=== PATIENT | female | born 1995 | race Caucasian/White ===

== ENCOUNTER 2019-11-17 17:24 | Outpatient (REF) | payer OTHER, SELFPAY | END 2019-11-17 17:25 | disposition home or self-care (01) | LOC: HO.LAB 17:24 | PROVIDERS: Visit Provider Internal Medicine | DX: Z20.828 Contact with and (suspected) exposure to other viral communicable diseases (principal) | CPT/HCPCS: 87635 ==

== ENCOUNTER 2020-01-05 16:59 | Outpatient (REF) | payer OTHER, SELFPAY | END 2020-01-05 17:00 | disposition home or self-care (01) | LOC: HO.LAB 16:59 | PROVIDERS: Visit Provider Internal Medicine | DX: Z20.828 Contact with and (suspected) exposure to other viral communicable diseases (principal) | CPT/HCPCS: C9803; U0003 ==

== ENCOUNTER 2020-05-22 12:34 | Emergency (ER) | payer OTHER, SELFPAY ==
--- NOTE | ~2020-05-22 | XR_ITS ---
EXAMINATION: RIGHT HAND and wrist CLINICAL INFORMATION: Glass injury. Rule out foreign body COMPARISON: None TECHNIQUE: 4 view right hand and wrist FINDINGS: There is no evidence of acute fracture or dislocation of the right hand or wrist. Bandage overlying the volar lateral aspect of the right wrist is present and may obscure faint radiopaque foreign bodies however no definite radiopaque foreign body is identified. XR/XR hand wrist RT IMPRESSION: No definite radiopaque foreign body identified with limitations of dressing in place about the wrist.
[2020-05-22 13:02] VITALS: BP 134/83; PULSE 88; RESP 18; TEMP 37.1; O2SAT 99; BMI 21.2
[2020-05-22] MEDS: Lidocaine HCl 1 % MPF 5 ML VIAL SUBCUT ×2 (13:14)
[2020-05-22] MEDS: LORazepam 1 MG TABLET PO (14:28)
--- NOTE | 2020-05-22 15:38 | ED.WOUNDLAC ---
HPI - Wound/Laceration General Chief Complaint: Wound/Laceration Stated Complaint: R HAND LACERATION Time Seen by Provider: 05/22/20 12:59 History of Present Illness HPI narrative: Patient complains of a laceration to her right hand after she got upset and put her hand through a mirror, denies any numbness weakness or tingling does not have any foreign body sensation Related Data Allergies Allergy/AdvReac Type Severity Reaction Status Date / Time No Known Allergies Allergy Verified 05/22/20 13:04 [No Known Allergies*] Review of Systems Review of Systems: Positive for right hand laceration Negatives are no fever no chills no dizziness no weakness no headache no numbness weakness or tingling PMFSH Past Medical History Source: nursing notes reviewed Medical History (Updated 05/23/20 @ 00:00 by Background Daemon) No known health problems Social History Social History Advance Directives: No Advance Directives Information Provided: No Physical Exam Vital Signs: Vital Signs: Last Vital Signs Temp 98.7 F 05/22/20 13:02 Pulse 88 05/22/20 13:02 Resp 18 05/22/20 13:02 BP 134/83 05/22/20 13:02 Pulse Ox 99 05/22/20 13:02 Body Mass Index 21.2 General appearance is no acute distress, com and cooperative The head is normocephalic atraumatic Neck is supple Respiratory no distress Extremities the right hand has 2 lacerations on the palm 1 is a 1 cm straight laceration, the 2nd 1 is a 3.5 cm gaping laceration on the palm, all tendon function is normal on flexion and extension and neurovascular intact distal Other extremities normal Neuro no focal deficit Course Course Course Narrative: Two lacerations on right hand the 1st 1 is 1.5 cm straight laceration and the 2nd 1 is a gaping curved 3.5 cm palm laceration The lacerations are copiously irrigated with no evidence of foreign body Anesthesia is 6 cc of 1% lidocaine in the larger laceration and 3 cc of 1% lidocaine and the smaller laceration The large laceration was closed with a mix of 4-0 and 5 0 nylon sutures with some Steri-Strips placed for thin skin flap The 1.5 cm palm laceration was cleansed and irrigated with normal saline anesthesia was 3 cc of 1% lidocaine and 350 nylon sutures were used to close All bleeding was controlled and dressing was applied X-rays were negative for any foreign body or bony injury Discharge Plan Discharge Clinical Impression: Laceration Patient Disposition: Home, Self-Care Additional Instructions: Stitches need to come out in 1 week, they can remove the tape at the same time and if the tape falls off there is no need to replace it Remove the bandage to wash the hand at least twice a day gently with soap and water You can replace Band-Aids or bandages when skin is dry and any wet Band-Aid or bandage should removed immediately and changed Return any time for redness, swelling, increasing pain, red stripe up arm, discharge from wound, any sign of infection or any concerns You got a tetanus shot Stand Alone Forms: Work/School Release Interventions: ED Discharge Assessment Last Done: 05/22/20 16:01 Discharge Date/Time: 05/22/20 16:02
--- NOTE | 2020-05-22 15:51 | PC.NURSE ---
Cleaned and irrigated 2 lacerations to right hand with normal saline. Applied a non-adhesive dressing to laceration and covered it with roll gauze. RN and PA aware.
[2020-05-22] MEDS: Diphth,Pertus(ACell),Tet Adult 0.5 ML SYRINGE IM (15:57)
== END 2020-05-22 16:02 | disposition home or self-care (01) ==
PROVIDERS: Emergency Provider Emergency Medicine
DX: S61.411A Laceration without foreign body of right hand, initial encounter (principal); W22.8XXA Striking against or struck by other objects, initial encounter; Y93.89 Activity, other specified; Y92.019 Unspecified place in single-family (private) house as the place of occurrence of the external cause; Y99.9 Unspecified external cause status
CPT/HCPCS: 12002; 73110; 73130; 90471; 90715; 99283; 99284

== ENCOUNTER 2020-06-02 10:43 | Emergency (ER) | payer OTHER, SELFPAY ==
[2020-06-02 10:49] VITALS: BP 110/65; PULSE 85; RESP 18; TEMP 37; O2SAT 98; BMI 29.2
--- NOTE | 2020-06-02 11:13 | ED.GENADULT ---
HPI - General Adult General Chief complaint: Skin/Abscess/Foreign Body Stated complaint: SUTURE REMOVAL Time Seen by Provider: 06/02/20 10:50 Source: patient Mode of arrival: ambulatory Limitations: no limitations History of Present Illness HPI narrative: Patient seen here 10 days ago for laceration to the right wrist. Had sutures placed. Here for removal. No fevers or chills or any complaints. Related Data Allergies Allergy/AdvReac Type Severity Reaction Status Date / Time No Known Allergies Allergy Verified 05/22/20 13:04 [No Known Allergies*] Review of Systems Review of Systems: Yes all other systems are reviewed and are negative Constitutional: Constitutional: Reports no additional constitutional complaints, Denies body ache(s), Denies chills, Denies fever(s), Denies headache(s) and Denies weakness Eyes: Eyes: Reports no additional eye complaints and Denies change in vision ENT: Reports system reviewed and no additional complaints, except as documented, Denies dizziness, Denies headache(s), Denies nasal congestion, Denies nasal discharge and Denies neck pain Cardiovascular: Cardiovascular: Reports no additional cardiovascular complaints, Denies chest pain, Denies leg edema and Denies dyspnea Respiratory: Respiratory: Reports no additional respiratory complaints, Denies cough and Denies dyspnea Gastrointestinal: Gastrointestinal: Reports no additional gastrointestinal complaints, Denies abdominal pain, Denies diarrhea, Denies nausea and Denies vomiting Genitourinary: Genitourinary: Reports no additional female genitourinary complaints and Denies urinary incontinence Musculoskeletal: Musculoskeletal: Reports no additional musculoskeletal complaints, Denies back pain, Denies arthralgias, Denies joint swelling, Denies neck pain, Denies numbness and Denies tingling Integumentary/Breasts: Skin/Breast: Reports system reviewed and no additional complaints, except as docu and Denies rash Neurologic: Reports system reviewed and no additional complaints, except as documented, Denies Abnormal speech present, Denies dizziness, Denies headache(s), Denies numbness, Denies tingling and Denies weakness PMFSH Past Medical History Attestation statement: The following information was validated with the patient. Source: old records reviewed and nursing notes reviewed Medical History No known health problems Social History Social History Advance Directives: No Advance Directives Information Provided: No Physical Exam Vital Signs: Vital Signs: Last Vital Signs Temp 98.6 F 06/02/20 10:49 Pulse 85 06/02/20 10:49 Resp 18 06/02/20 10:49 BP 110/65 06/02/20 10:49 Pulse Ox 98 06/02/20 10:49 Body Mass Index 29.2 Const: General: cooperative, healthy appearing, comfortable and no acute distress Orientation/consciousness: patient oriented x3 Limitations: no limitations HENMT: Head: Yes normal to inspection Ears: hearing grossly normal bilaterally General nose exam: Normal external nose present Face and sinus: Yes normal facial exam Eyes: General: appearance normal, both eyes and all related structures Neck: Neck: Yes normal visual inspection Chest: Chest palpation & inspection: normal inspection of the chest Resp: Effort & Inspection: normal respiratory effort Cardio: Peripheral pulses: Peripheral pulses 2+ throughout GI: Inspection: Yes normal to inspection Back/Spine/Pelvis: Thoracic/Lumbar Spine: thoracic and lumbar spine normal to inspection Skin: General skin exam: no rashes or lesions noted Neuro: General: patient oriented x3 and moves all extremities Cognition (Neuro): normal cognition Speech: No Abnormal speech present Gait exam (Neuro): Normal gait present Extrem: Other: To the right wrist on the volar aspect there are 2 lacerations with sutures present.. There is a more distal laceration with 3 sutures present with no surrounding erythema, drainage or fluctuance.. There is a more proximal laceration with 13 sutures present with mild erythema but no fluctaunce, drainage or warmth General: Yes normal to inspection Course Course Course Narrative: Patient here for suture removal. No complaints. See procedure note. Reviewed worrisome signs and symptoms when to return to the emergency department. Comfortable discharge home. Procedures Procedure Narrative Procedure Narrative: Sixteen sutures removed from 2 lacerations on the right volar wrist. No complication. Wound was cleansed with hydrogen peroxide and normal saline. Topical antibiotic ointment was placed with a wrap by nursing. Discharge Plan Discharge Clinical Impression: Visit for suture removal Patient Disposition: Home, Self-Care Instructions: Stitches Removal (ED) Additional Instructions: Wash the area every day with soap and water Apply topical antibiotic ointment and wrapped the next few days For the scabbing you may apply a moist gauze with hydrogen peroxide Referrals: Physician,None [Primary Care Provider] - 2 days Interventions: ED Discharge Assessment Last Done: 06/02/20 11:13 Discharge Date/Time: 06/02/20 11:13
== END 2020-06-02 11:13 | disposition home or self-care (01) ==
PROVIDERS: Emergency Provider Emergency Medicine
DX: Z48.02 Encounter for removal of sutures (principal)
CPT/HCPCS: 99283

== ENCOUNTER 2020-08-02 23:24 | Emergency (ER) | payer OTHER, SELFPAY ==
[2020-08-02 23:47] VITALS: BP 106/67; PULSE 88; RESP 16; TEMP 36.6; O2SAT 100; BMI 28.0
--- NOTE | 2020-08-03 00:07 | ED.WOUNDLAC ---
HPI - Wound/Laceration General Chief Complaint: Wound/Laceration Stated Complaint: Lac on right foot Time Seen by Provider: 08/02/20 23:53 Source: patient Mode of arrival: ambulatory Limitations: no limitations History of Present Illness HPI narrative: Patient comes emergency room complaining of a circular laceration to the medial aspect of her right foot. Patient states that yesterday morning she dropped a piece of glass and lacerated her foot. Related Data Allergies Allergy/AdvReac Type Severity Reaction Status Date / Time No Known Allergies Allergy Verified 08/02/20 23:51 [No Known Allergies*] Review of Systems Review of Systems: Constitutional : No Weight loss, No Fever, No Chills, No Night Sweats, No Fatigue, No Malaise ENT/Mouth : No Hearing loss, No Ear Pain, No Nasal Congestion, No Sinus Pain, No Hoarseness, No sore throat, No Rhinorrhea, No Swallowing Difficulty Eyes: No Eye Pain, No Swelling, No Redness, No Foreign Body, No Discharge, No Vision Changes Cardiovascular : No Chest Pain, No SOB, No Dyspnea on Exertion, No Orthopnea, No Edema, No Palpitations Respiratory : No Cough, No Sputum, No Wheezing, No Smoke Exposure, No Dyspnea Gastrointestinal : No Nausea, No Vomiting, No Diarrhea, No Constipation, No abdominal Pain, No Hematochezia, No Melena Genitourinary : no irregular bleeding, No Dysuria, No Urinary Frequency, No Hematuria, No Urinary Incontinence, No Urgency, No Flank Pain, No Urinary Flow Changes, No Hesitancy Musculoskeletal : No joint pain, No Myalgias, No Joint Swelling Skin : Laceration to the foot Neuro : No Weakness, No Numbness, No Paresthesias, No Loss of Consciousness, No Dizziness, No Headache Psych : No Anxiety/Panic, No Depression, No SI/HI/AH/VH, No Social Issues, Heme/Lymph: No Bruising, No Bleeding,No Lymphadenopathy Endocrine : No Polyuria, No Polydipsia, No Temperature Intolerance PMF Past Medical History Medical History No known health problems Social History Social History Advance Directives: No Advance Directives Information Provided: No Physical Exam Vital Signs: Vital Signs: Last Vital Signs Temp 97.9 F 08/02/20 23:47 Pulse 88 08/02/20 23:47 Resp 16 08/02/20 23:47 BP 106/67 08/02/20 23:47 Pulse Ox 100 08/02/20 23:47 Body Mass Index 28.0 Appearance: Alert. Oriented X3. No acute distress. Eyes: Pupils equal, round and reactive to light. ENT: Pharynx normal. Neck: Normal inspection. Neck supple. No lymph nodes noted. No crepitus CVS: Normal heart rate and rhythm. Pulses normal. Normal S1 and S2 Respiratory: No respiratory distress. Breath sounds normal. No Wheezing. No rales Abdomen: Soft and nontender. No rigidity. No distention. good BS x4 Skin: Skin warm and dry. 4 cm semi circular laceration to the medial aspect of the right foot. Skin borders are approximately 1 mm apart, the bone itself is superficial Extremities: No lower extremity edema. No lower extremity edema. No Lacerations. No Rash Neuro: Oriented X 3. No motor deficit. No sensory deficit. Moving all extermities. No slurred speech. Course Course Course Narrative: The foot was thoroughly cleaned. The laceration is clean, superficial, sutures are not warranted at this time. Dermabond was applied to the wound and Steri-Strips. Discharge Plan Discharge Clinical Impression: Laceration Patient Disposition: Home, Self-Care Instructions: Laceration (ED) Additional Instructions: Do not take on the glue or remove the Steri-Strips, they will fall off by themselves. If you see any signs of infection such as redness, pus drainage, fever, please return to the emergency room.
== END 2020-08-03 00:21 | disposition home or self-care (01) ==
PROVIDERS: Emergency Provider Emergency Medicine
DX: S91.311A Laceration without foreign body, right foot, initial encounter (principal); W25.XXXA Contact with sharp glass, initial encounter; Y93.9 Activity, unspecified; Y92.9 Unspecified place or not applicable; Y99.9 Unspecified external cause status
CPT/HCPCS: 12002; 99284

== ENCOUNTER 2023-10-24 14:52 | Emergency (ER) | payer OTHER, SELFPAY ==
[2023-10-24 14:55] VITALS: BP 125/86; PULSE 92; RESP 16; TEMP 37; O2SAT 100; BMI 34.4
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
--- NOTE | 2023-10-24 15:01 | ECG_ITS ---
Test Reason : ?seizure Blood Pressure : / mmHG Vent. Rate : 084 BPM Atrial Rate : 084 BPM P-R Int : 140 ms QRS Dur : 078 ms QT Int : 364 ms P-R-T Axes : 033 047 036 degrees QTc Int : 430 ms Normal sinus rhythm Normal ECG When compared with ECG of 28-JUL-2019 15:10, Vent. rate has decreased BY 41 BPM Referred By: Jenny Montanez Electronically Signed By:MANI JAIMES
[2023-10-24 15:21] LABS: MANUAL DIFF FLAG NO
[2023-10-24 15:27] LABS: Basophils Percent Auto 0.6 % (0-2); Eosinophils Absolute Auto 0.1 X10*3/uL (0.0-0.4); Eosinophils Percent Auto 1.1 % (0-4); Hematocrit 38.3 % (37.0-47.0); Hemoglobin 12.3 g/dl (12.0-16.0); Imm Gran Abs Auto 0.02 X10*3/uL (0.00-0.03); Imm Gran Pct Auto 0.3 % (0.0-0.4); Lymphocytes Absolute Auto 1.8 X10*3/uL (1.2-4.9); Lymphocytes Percent Auto 25.5 % (20-40); Mean Corpuscular HGB Conc 32.1 g/dl (31.0-35.0); Mean Corpuscular Hemoglobin 25.8 pg (27.0-33.0); Mean Corpuscular Volume 80.5 fL (80.0-98.0); Mean Platelet Volume 10.5 fL (9.4-12.3); Monocytes Absolute Auto 0.6 X10*3/uL (0.1-1.2); Monocytes Percent Auto 8.7 % (2-11); Neutrophils Absolute Auto 4.5 x10*3/uL (2.0-8.3); Neutrophils Percent Auto 63.8 % (45-73); Platelet Count 276 X10*3/uL (160-400); Red Blood Count 4.76 X10*6/uL (4.20-5.50); Red Cell Distribution Width 13.2 % (11.0-16.0)
[2023-10-24 15:44] LABS: Alanine Aminotransferase 21 U/L (0-31); Albumin Level 3.9 g/dL (3.5-5.0); Alkaline Phosphatase 45 U/L (39-117); Anion Gap 10 (12-20); Aspartate Amino Transferase 22 U/L (5-31); Bilirubin Total 0.3 mg/dL (0.0-1.0); Blood Urea Nitrogen 9 mg/dL (9-16); Carbon Dioxide 27 mmol/L (22-29); Chloride 106 mmol/L (96-108); Creatinine Clr Calc Pharmacy 98.9; Estimated Glomerular Filt Rate > 60; Glucose Random 100 mg/dL (60-115); Magnesium 1.9 mg/dL (1.6-2.6); Potassium 3.4 mmol/L (3.3-5.1); Sodium 140 mmol/L (135-145); Total Protein 6.9 g/dL (6.5-8.0)
[2023-10-24 15:52] LABS: HCG Quantitative 90 mIU/mL
--- NOTE | 2023-10-24 18:38 | PC.NURSE ---
Pt LWCT however patient has not been informed that her beta quant was 90, attempted to call but had to leave a message on her voicemail.
== END 2023-10-24 18:42 | disposition left against medical advice (07) ==
PROVIDERS: Physician Assistant Medical; Emergency Provider Emergency Medicine
DX: R56.9 Unspecified convulsions (principal); Z53.21 Procedure and treatment not carried out due to patient leaving prior to being seen by health care provider
CPT/HCPCS: 36415; 80053; 82550; 83735; 84702; 85025; 93005; 99281; 99283

== ENCOUNTER 2024-12-27 00:04 | Emergency (ER) | payer OTHER, SELFPAY ==
[2024-12-27 00:17] VITALS: BP 00/00; PULSE 102; RESP 22; TEMP 36.8; O2SAT 99; BMI 35.4
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
[2024-12-27 00:32] VITALS: BP 121/77
--- OUTSIDE RECORDS SUMMARY | 2024-12-27 00:51 | XMS_ITS | Encounter Summary ---
Author Organization [facility] Address [address] [place] [address] Phone Care Team Providers Care Awning Maker And Installer Name Role Phone Sarahy Mathur FELT PAD CUTTER Primary Care Provider Un available Encounter Details Date Type Department Care Team (Late st Contact Info) Description 09/24/[address] [facility] [place] Family [place] [address] Family Medicine, Physician [address] [place], [place] [address] Social History Tobacco Use Types Packs/Day Years Used Date Smoking Tobacco: Never Assessed Comments Unknown Sex and Gender Information Value Date Recorded Sex Assigned at Not on file Legal Sex Female 5:00 PM EDT Gender Identity Not on file Sexual Orientation Not on file documented as of this encounter Plan of Treatment Not on file documented as of this encounter Visit Diagnoses Not on filedocumented in this encounter Care Teams Awning Maker And Installer Relationship Specialty Start Date End Date Sarahy Mathur NP PCP - General Pediatrics 05/29/17 documented as of this encounter
--- OUTSIDE RECORDS SUMMARY | 2024-12-27 00:51 | XMS_ITS | Clinical Summary ---
Author Organization [facility] it Address [address] [place] [address] Care Team Providers Care Helper Driver Name Role Phone Unavailable Primary Care Provider Unavailabl e Social History Tobacco Use Types Packs/Day Years Used Date Smoking Tobacco: Never Assessed Comments Unknown Sex and Gender Information Value Date Recorded Sex Assigned at Not on file Legal Sex Female 6:37 PM EST Gender Identity Not on file Sexual Orientation Not on file Plan of Treatment Health Maintenance Due Date Last Done Comments DTaP,Tdap,and Td Vaccines (1 - Tdap) 11/17/2015 Hepatitis B Vaccines (1 of 3 - 19+ 3-dose series) 11/17/2015 Cervical Cancer Screening: P ap Smear 2017 HPV Vaccines (1 - 3-dose SCD M series) 11/17/2023 Depression Screening 02/11/2024 COVID-19 Vaccine (1 - 2024-2 6 season) 2024 Influenza Vaccine (#1) 2024 RSV Immunization Adult Patie nts (1 - 1-dose 75+ series) 11/17/2071 HIB Vaccines Aged Out No longer eligi ble based on patient's age to complete this topic Hepatitis A Vaccines Aged Out No long er eligible based on patient's age to complete this topic IPV Vaccines Aged Out No longer eligi ble based on patient's age to complete this topic MMR Vaccines Aged Out No longer eligi ble based on patient's age to complete this topic Meningococcal ACWY Vaccine Aged Out N o longer eligible based on patient's age to complete this topic Meningococcal B Vaccine Aged Out No l onger eligible based on patient's age to complete this topic Pneumococcal Vaccine: Pediat rics (0 to 5 Years) and At-Risk Patients (6 to 49 Years) Aged Out No longer eligible b ased on patient's age to complete this topic RSV Immunization Patients Un andriy 20 months Aged Out No longer eligible b ased on patient's age to complete this topic Varicella Vaccines Aged Out No longer eligible based on patient's age to complete this topic
--- OUTSIDE RECORDS SUMMARY | 2024-12-27 00:51 | XMS_ITS | Encounter Summary ---
Author Organization [facility] Address [address] [place] [address] Phone Care Team Providers Care Ballet Teacher Name Role Phone Sarahy Mathur PAN WASHER HAND Primary Care Provider Un available Encounter Details Date Type Department Care Team (Late st Contact Info) Description 09/21/2010 Documentation [facility] [place] Family Medicine [facility] [place] [address] Family Medicine, Physician [address] [place], [place] [id number] Social History Tobacco Use Types Packs/Day Years [...] on filedocumented in this encounter Care Teams Ballet Teacher Relationship Specialty Start Date End Date Sarahy Mathur NP PCP - General Pediatrics 05/29/17 documented as of this encounter
--- OUTSIDE RECORDS SUMMARY | 2024-12-27 00:51 | XMS_ITS | Encounter Summary ---
Author Organization [facility] Address [address] [place] [address] Phone Care Team Providers Care Deputy Of Counter Intelligence Name Role Phone Sarahy Mathur MICROWAVE TECHNICIAN Primary Care Provider Un available Encounter Details Date Type Department Care Team (Late st Contact Info) Description 09/26/2016 Conversion Encounter [facility] - [address] [address] Social History Tobacco Use Types Packs/Day Years Used Date Smoking Tobacco: Never Comments:Never smoker Comments Unknown Sex and Gender Information Value Date Recorded Sex Assigned at Not on file Legal Sex Female 5:00 PM EDT Gender Identity Not on file Sexual Orientation Not on file documented as of this encounter Plan of Treatment Not on file documented as of this encounter Visit Diagnoses Not on filedocumented in this encounter Care Teams Deputy Of Counter Intelligence Relationship Specialty Start Date End Date Sarahy Mathur NP PCP - General Pediatrics 05/29/17 documented as of this encounter
--- OUTSIDE RECORDS SUMMARY | 2024-12-27 00:51 | XMS_ITS | Encounter Summary ---
Author Organization [facility] Address [address] [place] [address] Phone Care Team Providers Care Corrections Officer Name Role Phone Sarahy Mathur COMPATIBILITY TEST ENGINEER Primary Care Provider Un available Encounter Details Date Type Department Care Team (Late st Contact Info) Description 09/21/2010 Documentation [facility] [place] Family Medicine [facility] [address] Family Medicine, Physician [address] [place], [place] [phone] Social History Tobacco Use Types Packs/Day Years [...] on filedocumented in this encounter Care Teams Corrections Officer Relationship Specialty Start Date End Date Sarahy Mathur NP PCP - General Pediatrics 05/29/17 documented as of this encounter
--- OUTSIDE RECORDS SUMMARY | 2024-12-27 00:51 | XMS_ITS | Encounter Summary ---
Author Organization [facility] Address [address] [place] [address] Phone Care Team Providers Care Senior Insight Manager Name Role Phone Sarahy Mathur FBI SHARPSHOOTER Primary Care Provider Un available Encounter Details Date Type Department Care Team (Late st Contact Info) Description 12/10/2011 Documentation [facility] [place] [facility] [place] [address] Family Medicine, Physician [address] [place], [place] [address] Social History Tobacco Use Types Packs/Day Years [...] on filedocumented in this encounter Care Teams Senior Insight Manager Relationship Specialty Start Date End Date Sarahy Mathur NP PCP - General Pediatrics 05/29/17 documented as of this encounter
--- OUTSIDE RECORDS SUMMARY | 2024-12-27 00:51 | XMS_ITS | Encounter Summary ---
Author Organization [facility] Address [address] [place] [address] Phone Care Team Providers Care Wheel Braider Name Role Phone Sarahy Mathur FREELANCE DIRECTOR Primary Care Provider Un available Encounter Details Date Type Department Care Team (Late st Contact Info) Description 09/21/2010 [place]ation [facility] [place] [facility] [address] Family Medicine, Physician [address] [place], [place] [address] Social History Tobacco Use Types Packs/Day Years [...] on filedocumented in this encounter Care Teams Wheel Braider Relationship Specialty Start Date End Date Sarahy Mathur NP PCP - General Pediatrics 05/29/17 documented as of this encounter
--- OUTSIDE RECORDS SUMMARY | 2024-12-27 00:51 | XMS_ITS | Encounter Summary ---
Author Organization [facility] Address [address] [place] [address] Phone Care Team Providers Care Purchasing Manager/Sales Name Role Phone Sarahy Mathur PRAWN TRAWLER HAND Primary Care Provider Un available Encounter Details Date Type Department Care Team (Late st Contact Info) Description 09/24/2011 Documentation [facility] [place] Family Medicine [facility] [address] Family Medicine, Physician [address] [place], [place] [address] Social History Tobacco Use Types Packs/Day Years [...] on filedocumented in this encounter Care Teams Purchasing Manager/Sales Relationship Specialty Start Date End Date Sarahy Mathur NP PCP - General Pediatrics 05/29/17 documented as of this encounter
--- OUTSIDE RECORDS SUMMARY | 2024-12-27 00:51 | XMS_ITS | Clinical Summary ---
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 Overview (11/12/2016): Continuing with continuing exposure Immunizations Immunization Administration Dates Next Due DTP 05/16/1998, 8,04/26/1997, 997 DTaP 5 04/27/2002 Hep B, ped/adol 11/15/1997,01/19/1997,1996 Hib (PRP-T) 02/15/1998, 8,04/26/1997, 997 IPV 04/27/2002 Influenza, injectable, quadrivalent 01/14/2014 Influenza, injectable, trivalent 12/01/2007 MMR 12/16/2000,11/15/1997 Meningococcal Conj (Menactra) MCV4P 09/26/2009 OPV 06/16/1997,04/26/1997,01/19/1997 Tdap 09/26/2009 Varicella 06/02/2007,02/15/1998 Family History Relation Name Status Comments Mother Alive Mother: Asthma, Alive and well Sister Alive Sister: Alive a nd well Social History Tobacco Use Types Packs/Day Years Used Date Smoking Tobacco: Never Comments:Never smoker Comments Unknown Sex and Gender Information Value Date Recorded Sex Assigned at Not on file Legal Sex Female 5:00 PM EDT Gender Identity Not on file Sexual Orientation Not on file Last Filed Vital Signs Vital Sign Reading Time Taken Comments Blood Pressure 98/63 03/04/2017 9:30 AM EST Pulse 81 03/04/2017 9:30 AM EST Temperature 36.6 C (97.8 F) 03/04/2017 9:30 AM EST Respiratory Rate - - Oxygen Saturation - - Inhaled Oxygen Concentration - - Weight 56.2 kg (124 lb) 03/04/2017 9:30 AM EST Height 156.8 cm (5' 1.75 ) 12/08/2014 12:00 AM E DT Body Mass Index 22.86 12/08/2014 12:00 AM EDT Plan of Treatment Health Maintenance Due Date Last Done Comments DTaP,Tdap,and Td Vaccines (7 - Td or Tdap) 09/27/2019 09/26/2009, 04/27/2002, 05/16/1998, Additional history exists HPV Vaccines (1 - 3-dose SCDM series) 11/17/2023 Influenza Vaccines (#1) 2024 01/14/2014, 11/30 COVID-19 Vaccine (2024- season) 2024 Hepatitis B Vaccines Completed 11/15/1997, 01/19/1997, 1996 HIB Vaccines Completed 02/15/1998, 08/1997, 04/26/1997, Additional history exists MMR Vaccines Completed 12/16/2000, 11/15/1997 IPV Vaccines Completed 04/27/2002, 08/1997, 04/26/1997, Additional history exists Varicella Vaccines Completed 06/02/2007, 02/15/1998 Meningococcal Vaccine Aged Out 09/26/2009 No yimi natividad eligible based on patient's age to complete this topic Hepatitis A Vaccines Aged Out No long er eligible based on patient's age to complete this topic Men B Vaccine Aged Out No longer elig ible based on patient's age to complete this topic Pneumococcal Vaccine Aged Out No long er eligible based on patient's age to complete this topic Procedures * Due to [place] state law, this organization might not be sharing sensitive test results. Procedure Name Priority Date/Time Associated Diagnosis Comments CHLAMYDIA AND GONORRHEA, AMPLIFIED Routine 07/01/2012 4:37 PM EDT from Last 3 Months or Most Recently Relevant to Health Maintenance Results * Due to [place] state law, this organization might not be sharing sensitive test results. * Chlamydia and Gonorrhoea, Amplified (07/01/2012 4:37 PM EDT) URINE CHLAMYDIA AMP PROBE NEGATIVE [facility] Comment: NO CHLAMYDIA TRACHOMATIS RNA DETECTED IN THIS PATIENT'S SAMPLE. (REFERENCE RANGE/NORMAL VALUE: NOT DETECTED) URINE GC AMP PROBE NEGATIVE [facility] Comment: NO NEISSERIA GONORRHOEAE RNA DETECTED IN THIS PATIENT'S SAMPLE. (REFERENCE RANGE/NORMAL VALUE: NOT DETECTED) NOTE: THIS TEST USES LAY UP OPERATOR-MEDIATED AMPLIFICATION METHOD TO DETECT rRNA FROM C.TRACHOMATIS AND N.GONORRHOEAE. A NEGATIVE RESULT DOES NOT PRECLUDE INFECTION. THE APTIMA COMBO 2 ASSAY IS NOT INTENDED FOR THE EVALUATION OF SUSPECTED SEXUAL ABUSE OR FOR OTHER MEDICO LEGAL INDICATIONS. THERAPEUTIC FAILURE OR SUCCESS CANNOT BE DETERMINED WITH THE APTIMA COMBO 2 ASSAY SINCE NUCLEIC ACID MAY PERSIST FOLLOWING APPROPRIATE ANTIMICROBIAL THERAPY. IN THE CASE OF A NEGATIVE URINE RESULT, TESTING OF AN ENDOCERVICAL (FEMALE) OR URETHRAL (MALE) SPECIMEN IS RECOMMENDED IF THERE IS HIGH CLINICAL SUSPICION OF INFECTION. 07/01/2012 4:37 PM EDT Narrative [facility] - 07/01/2012 4:37 PM EDT URINE CHLAMYDIA GC AMP PROBE us Sarahy Mathur NP LAB MICROBIOLOGY - GENERA L ORDERABLES Final Result [facility] [address] [place] [address], [place] from Last 3 Months or Most Recently Relevant to Health Maintenance Care Teams Senior Sales Operations Analyst Relationship Specialty Start Date End Date Sarahy Mathur NP PCP - General Pediatrics 05/29/17
--- OUTSIDE RECORDS SUMMARY | 2024-12-27 00:51 | XMS_ITS | Encounter Summary ---
Author Organization [facility] Address [address] [place] [address] Phone Care Team Providers Care Bleach Tester Name Role Phone Sarahy Mathur JOB TRAINER Primary Care Provider Un available Encounter Details Date Type Department Care Team (Late st Contact Info) Description 09/24/2011 Documentation [facility] [place] Family Medicine [facility] [place] [address] Family Medicine, Physician [address] [place], [place] [phone] Social History Tobacco Use Types Packs/Day Years [...] on filedocumented in this encounter Care Teams Bleach Tester Relationship Specialty Start Date End Date Sarahy Mathur NP PCP - General Pediatrics 05/29/17 documented as of this encounter
--- OUTSIDE RECORDS SUMMARY | 2024-12-27 00:52 | XMS_ITS | Encounter Summary ---
Author Organization [facility] Address [address] [place] [address] Phone Care Team Providers Care Cancer Genetic Counselor Name Role Phone Sarahy Mathur HORSER UP Primary Care Provider Un available Encounter Details Date Type Department Care Team (Late st Contact Info) Description 05/12/2012 Documentation [facility] [place] [facility] [place] [address] Family Medicine, Physician [address] [place], [place] [address] Social History Tobacco Use Types Packs/Day Years [...] on filedocumented in this encounter Care Teams Cancer Genetic Counselor Relationship Specialty Start Date End Date Sarahy Mathur NP PCP - General Pediatrics 05/29/17 documented as of this encounter
--- OUTSIDE RECORDS SUMMARY | 2024-12-27 00:52 | XMS_ITS | Encounter Summary ---
Author Organization [facility] Address [address] [place] [address] Phone Care Team Providers Care Traffic Engineer Name Role Phone Sarahy Mathur WINERY CELLAR HAND Primary Care Provider Un available Encounter Details Date Type Department Care Team (Late st Contact Info) Description 05/12/2012 Documentation [facility] [place] Family Medicine [facility] [place] [address] Family Medicine, Physician [address] [place], [place] [address] Social History Tobacco Use Types Packs/Day Years [...] on filedocumented in this encounter Care Teams Traffic Engineer Relationship Specialty Start Date End Date Sarahy Mathur NP PCP - General Pediatrics 05/29/17 documented as of this encounter
--- OUTSIDE RECORDS SUMMARY | 2024-12-27 00:52 | XMS_ITS | Data Portability ---
Author Organization [facility], [address] Address [address] [place] [address] Assessment No assessment recorded. Plan of Treatment Reminders Order Date Submit Date Provider Last Modified By Organization Details Last Modified Time Details Appointments None recorded. Lab None recorded. Referral None recorded. Procedures None recorded. Surgeries None recorded. Imaging None recorded. Medication Orders Tubersol 5 tub. unit/0.1 mL intradermal injection solution [id number] [address] [place], [address], 3 12:24:32 neomycin-po lymyxin-hyd rocort 3.5 mg-10,000 unit/mL-1 % ear drops,susp 2022 023 [facility] #[id number], [address] [place], [address], 3 18:11:33 Patient TargetsNo targets recorded. Patient Instructions Encounter Date Encounter Id Patient Instructions Last Modified By Organization Details Last Modified Time 05/17/2022 [id number] Water in the ear , from swimming or bathing, makes the ear canal prone to infection. Hot and humid weather also predisposes to infection. Symptoms of otitis externa include: ear pain, fullness or itching in the ear, ear drainage, and temporary loss of hearing. These symptoms are similar to those caused by otitis media (middle ear infection). To differentiate between external ear infection and middle ear infection, the provider looks in the ear with an instrument called an otoscope. It is important to distinguish between the two infections, as they are treated differently: External otitis is treated with drops in the ear canal, while middle ear infection is sometimes treated with an antibiotic by mouth. MEASURES YOU SHOULD TAKE TO HELP TREAT EXTERNAL EAR INFECTION: 1. Use the ear drops regularly, as directed on the prescription. 2. The burrows to treatment is getting the drops down into the canal and keeping the medicine there. To accomplish this: Lie on your side, with the unaffected ear down. Put three to four drops in the infected ear canal, then gently pull the outer ear back and forth several times, working the medicine deeper into the ear canal. Remain still, zjtc-vss-txpf-down for about 15 minutes. 3. Keep the ear as dry as possible. Swimming should be postponed until the infection has cleared. Try to avoid getting water in the ear when bathing. If water does get in the ear, the canal can be gently dried with a hair blow dryer. Use the low heat setting, and keep the blow dryer about six inches from the ear. 4. Dael-tbw-osrsdbq pain medications can relieve discomfort associated with external otitis. Acetaminophen (Tylenol), ibuprofen, or naproxen can be taken, depending on individual preference. 5. Return to the [facility] in about one week. The provider can check to make sure the infection has cleared, continue the medicine if needed, okay a return to swimming, etc. 6. To prevent repeated episodes of otitis externa, try to keep the ear canal dry. Gentle swabbing with Q-tips (never deep into the canal), along with a hair blow dryer (low heat), can be used to dry the ear canal if it gets wet. 7. Should you develop severe pain, fever, severe headache, or stiff neck, see your personal/referral doctor or go to the closest emergency department promptly. Otitis externa does not normally cause these symptoms; another problem, requiring different treatment, could be present [email or web address] Not available 05/17/2022 17:52:16 Water in the ear , from swimming or bathing, makes the ear canal prone to infection. Hot and humid weather also predisposes to infection. Symptoms of otitis externa include: ear pain, fullness or itching in the ear, ear drainage, and temporary loss of hearing. These symptoms are similar to those caused by otitis media (middle ear infection). To differentiate between external ear infection and middle ear infection, the provider looks in the ear with an instrument called an otoscope. It is important to distinguish between the two infections, as they are treated differently: External otitis is treated with drops in the ear canal, while middle ear infection is sometimes treated with an antibiotic by mouth. MEASURES YOU SHOULD TAKE TO HELP TREAT EXTERNAL EAR INFECTION: 1. Use the ear drops regularly, as directed on the prescription. 2. The burrows to treatment is getting the drops down into the canal and keeping the medicine there. To accomplish this: Lie on your side, with the unaffected ear down. Put three to four drops in the infected ear canal, then gently pull the outer ear back and forth several times, working the medicine deeper into the ear canal. Remain still, lqpk-jpu-drwp-down for about 15 minutes. 3. Keep the ear as dry as possible. Swimming should be postponed until the infection has cleared. Try to avoid getting water in the ear when bathing. If water does get in the ear, the canal can be gently dried with a hair blow dryer. Use the low heat setting, and keep the blow dryer about six inches from the ear. 4. Vvop-hna-lziuuge pain medications can relieve discomfort associated with external otitis. Acetaminophen (Tylenol), ibuprofen, or naproxen can be taken, depending on individual preference. 5. Return to the [facility] in about one week. The provider can check to make sure the infection has cleared, continue the medicine if needed, okay a return to swimming, etc. 6. To prevent repeated episodes of otitis externa, try to keep the ear canal dry. Gentle swabbing with Q-tips (never deep into the canal), along with a hair blow dryer (low heat), can be used to dry the ear canal if it gets wet. 7. Should you develop severe pain, fever, severe headache, or stiff neck, see your personal/referral doctor or go to the closest emergency department promptly. Otitis externa does not normally cause these symptoms; another problem, requiring different treatment, could be present maria teresa Not available 05/17/2022 17:51:28 Reason for Referral None Reported. Problems No Known Problems Procedures Surgical History Date Name Laterality Status Provider Name and Address Organization Details Recorded Time 3 OC- Physical completed Agueda QUILES - [facility] 06/10/2022 11:19:14 3 Cerumen Removal by Irrigation completed [facility]rales [facility] [address] [facility] [place], [address], [place] - [facility] 05/17/2022 18:11:03 Imaging Results None recorded. Procedure Notes None recorded. Medical Equipment None Reported. Allergies No known drug allergies Medications Name Sig Start Date Stop Date Status Note LastModified by Organization Details LastModified Time Apri 0.15 mg-0.03 mg tablet TAKE 1 TABLET BY MOUTH 1 TIME EACH DAY. active Not Available Not Available No t Available Tubersol 5 tub. unit/0.1 mL intradermal injection solution Inject 0.1 mL by intradermal route. 2022 active Not Available Not Available Not Avai lable metronidazol e 500 mg tablet TAKE 1 TABLET BY MOUTH TWICE A DAY FOR 7 DAYS active Not Available Not Available No t Available neomycin-seth ymyxin-hydro corbin 3.5 mg-10,000 unit/mL-1 % ear drops,susp INSTILL 4 DROPS INTO AFFECTED EAR(S) BY OTIC ROUTE 3 TIMES PER DAY x 7 days. 2022 active Not Available Not Available Not Avai lable Vitals Date Recorded Body height Body mass index (BMI) Body weight Body temperature Respiratory rate Heart rate Oxygen saturation Oxygen saturation in Arterial blood by Pulse oximetry Systolic And Diastolic Provider Name and Address Organization Details Last Updated DateTime 3 152.4 cm 33.2 kg/m2 95745.7 g 97.7 [degF] 18 /min 70 /min 99 % 99 % 123/68 mm[Hg] CAMERON Weller PA - [facility] 3 17:25:05 Social History Question Answer Notes LastModified by Organizat ion Details LastModified Time Tobacco Smoking Status Never Smoker CAMERON jaime PA - [facility] 05/17/2022 17:23:17 What Is Your Water Source? City Information not available 05/17/2022 What Is Your Heat Source? Other Information not available 05/17/2022 Have You Had Direct Contact, Or Contact During Intimacy, With Monkeypox Rash, Scabs, Or Body Fluids From A Person With Monkeypox? No Information not available 05/17/2022 Have You Recently Traveled Abroad? No Information not available 05/17/2022 Sex: Unknown Functional Status Question Answer Note LastModified by Organizat ion Details LastModified Time Do you use any illicit or recreational drugs? No Information not available 05/17/2022 Do you or have you ever used any other forms of tobacco or nicotine? No Information not available 05/17/2022 What is your level of alcohol consumption? Occasional Information not available 05/17/2022 Mental Status None recorded. Family History Relationship Description Onset Age of this Age Resolved Age Notes LastModified by Organization Details LastModified Time Father No current problems or disability Not available 17:23:09 Mother No current problems or disability Not available 17:23:09 Medical History No medical history recorded. Gynecological HistoryNo gynecological history recorded. Obstetrics History GPAL:G 0 P 0 0 0 0 Past Encounters Encounter ID Performer Location Encounter Start Date Encounter Closed Date Diagnosis/Indication Diagnosis SNOMED-CT Code Diagnosis ICD10 Code Diagnosis IMO Codes Diagnosis Note [id number] [facility] [place] [address] [address] 10/29/2020 16:24:40 10/29/2020 16:55:58 [id number] [place] [address] [address] [place] [address] 05/17/2022 17:09:38 05/17/2022 18:12:59 Impacted cerumen of bilateral ears 1513322135 530801 H61.23 Otitis ext haily of bilateral ears [id number] 908076 H60.93 [id number] Adrianna Holland MD [address] [address] [place] [address] 06/10/2022 11:16:12 06/10/2022 12:27:57 Tuberculosis screening 756995039 Z11.1 Health Concerns Section Related Observation LastModified by Organization Detai ls LastModified Time None Recorded Concern Status LastModified by Organization Details LastModified Time None Recorded Advance Directives Directive None Recorded Payers Insurance Date Sequence Insurance Name Policy Number Policy Marie Covered Member ID Marie Member ID Guarantor Name 05/17/2022 1 [facility] (HMO) [place] Shakira Leslieoire [id number] Shakira Leslieoire 06/10/2023 1 [facility] [employer]AN (MEDICAID HMO) [place] Shakira Leslieoire [id number] Shakira Suzanne 06/10/2022 DO NOT USE Shakira Palacios PAY AT TIME OF SERVICE PAY AT TIME OF SERVICE Shakira Palacios 06/10/2022 OC-ESCREEN Shakira Palacios [id number] Shakira Palacios Notes Date Note Type Note Provider Name and Address Organization Details Recorded Time 05/18/19 23 text/htm l Ear problem UCReported by PatientHPIFor quality, patient reportscloggedanddecreased hearing. For severity, patient reportsmoderate. For modifying factors, patient reportshurts to lie on, or pull on earbut reportsdoes not hurt to chewandoften has wax accumulation. For associated symptoms, patient reportspopping noise in the ears. For source of patient information, patient reportsinformation obtained from patient,patient arrived at urgent care ambulatory, andlearning styles: auditory. For location, patient reportsbilateral. For duration, patient reports2 weeks. For context, patient reportsno sick contacts,no recent swimming/water in ear, andno recent air travel. Thomas Corrales NP [address] [place], [address], [place] - [facility] 05/17/2022 18:11:33 OBGyn Episode No OBEpisode recorded.
--- OUTSIDE RECORDS SUMMARY | 2024-12-27 00:52 | XMS_ITS | Encounter Summary ---
Author Organization [facility] Address [address] [place] [address] Phone Care Team Providers Care [employer]er Name Role Phone Sarahy Mathur [employer] Primary Care Provider Un available Encounter Details Date Type Department Care Team (Late st Contact Info) Description 02/17/2014 Documentation [facility] [place] [place] Family Medicine [facility] [place] [address] Family Medicine, Physician [facility] [place] [place] [address] Social History Tobacco Use Types Packs/Day Years [...] on filedocumented in this encounter Care Teams [employer] Relationship Specialty Start Date End Date Sarahy Mathur NP PCP - General Pediatrics 05/29/17 documented as of this encounter
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
[2024-12-27 01:17] VITALS: BP 120/87; PULSE 85; RESP 18; TEMP 36.7; O2SAT 99
[2024-12-27 01:18] VITALS: BP 120/87; PULSE 85; RESP 18; TEMP 36.7; O2SAT 99
== END 2024-12-27 01:20 | disposition home or self-care (01) ==
PROVIDERS: Emergency Provider Student in an Organized Health Care Education/Training Program
DX: S09.90XA Unspecified injury of head, initial encounter (principal); Y04.2XXA Assault by strike against or bumped into by another person, initial encounter; Y93.9 Activity, unspecified; Y92.9 Unspecified place or not applicable; Y99.8 Other external cause status; R51.9 Headache, unspecified
CPT/HCPCS: 99284